=== PATIENT | male | born 1990 | race Two or more races ===

== ENCOUNTER 2024-03-27 06:43 | Emergency (ER) | payer OTHER ==
[~2024-03-27] VITALS: Ht 175.3 cm; Wt 86.2 kg
[2024-03-27] MEDS ORDERED: ACETAMINOPHEN ES 500 MG TABLET ONE (08:45)
[2024-03-27] MEDS ORDERED: IBUPROFEN 400 MG TABLET ONE (08:45)
[2024-03-27] MEDS: IBUPROFEN 400 MG TABLET PO ONE (08:49)
[2024-03-27] MEDS: ACETAMINOPHEN ES 500 MG TABLET PO ONE (08:49)
[2024-03-27 08:54] VITALS: BP 146/97; TEMP 98; O2SAT 98
== END 2024-03-27 08:55 | disposition home or self-care (01) ==
LOC: ER 06:49
DX: S00.03XA Contusion of scalp, initial encounter (principal); S00.83XA Contusion of other part of head, initial encounter; F10.10 Alcohol abuse, uncomplicated; Y04.2XXA Assault by strike against or bumped into by another person, initial encounter; Y93.89 Activity, other specified; Y92.89 Other specified places as the place of occurrence of the external cause; Y99.8 Other external cause status
CPT/HCPCS: 70450-TC; 70486-TC; 72125-TC